=== PATIENT | female | born 1980 | race Hispanic/Latino ===

== ENCOUNTER 2018-07-09 20:12 | Emergency (ER) | payer OTHER ==
[~2018-07-09] VITALS: Ht 160 cm; Wt 104.3 kg
[2018-07-09] MEDS ORDERED: IBUPROFEN 600 MG TAB PO STA (20:35)
[2018-07-09] MEDS ORDERED: CYCLOBENZAPRINE HCL 10 MG TAB PO NR (20:45)
[2018-07-09] MEDS ORDERED: IBUPROFEN 600 MG TAB PO NR (21:00)
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
== END 2018-07-09 22:35 | disposition home or self-care (01) ==
LOC: ER 20:12
DX: M54.2 Cervicalgia (principal); M54.5 Low back pain; S16.1XXA Strain of muscle, fascia and tendon at neck level, initial encounter; V43.62XA Car passenger injured in collision with other type car in traffic accident, initial encounter; Y92.488 Other paved roadways as the place of occurrence of the external cause
CPT/HCPCS: 72050; 99283

== ENCOUNTER 2020-03-02 15:21 | Emergency (ER) | payer MEDICARE, OTHER ==
[~2020-03-02] VITALS: Ht 160 cm; Wt 113.4 kg
--- NOTE | 2020-03-02 16:25 | Emergency Department Note ---
History of Present Illnes History of Present Illness Chief Complaint: Eye, Ear, Nose, Throat, Dental History of Present Illness This is a 39 year old female Chief Complaint Comment Patient in from home with reports that she feels like something is stuck in her throat. Patient states that she was eating chicken on friday and she began to laugh and believes that she inhaled a bone and believes it is still stuck in her throat. Patient states that she tried to cough and even vomit but nothing was able to help. Patient describes a sharp pain in her throat and is still able to eat and drink but notices that when she swallows she feels like "something is moving in there". Historian: Patient Arrival Mode: Car Waitress Required: No Onset (how long ago): day(s) (3) Location: Throat Quality: Something stuck Radiation: Reports non-radiation Severity: mild Onset quality: sudden Duration (how long): day(s) (3) Timing of current episode: constant Progression: unchanged Chronicity: new Context: Denies recent illness, Denies recent surgery Relieving factors: none Exacerbating factors: none Associated symptoms: Reports denies other symptoms Treatments prior to arrival: none Past Medical/Family History Physician Review I have reviewed the patient's past medical and family history. Any updates have been documented here. Past Medical History Recent Fever: No Clinical Suspicion of Infectio: No New/Unexplained Change in Ment: No Past Medical History: None Other Surgery: Social History Smoking Cessation: Never Smoker Counseling Performed: No Alcohol Use: Occasional Any Illegal Drug Use: No Other Any Pre-Existing Lines (PICC,: No Review of Systems Review of Systems Constitutional: Reports no symptoms EENTM: Reports as per HPI Cardiovascular: Reports no symptoms Respiratory: Reports no symptoms Gastrointestinal: Reports no symptoms Genitourinary: Reports no symptoms Musculoskeletal: Reports no symptoms Integumentary: Reports no symptoms Neurological: Reports no symptoms Psychological: Reports no symptoms Endocrine: Reports no symptoms Hematological/Lymphatic: Reports no symptoms Physical Exam Related Data Allergies: Coded Allergies: No Known Allergies (Unverified , 03/05/13) Triage Vital Signs Vital Signs Date Time Temp Pulse Resp B/P (MAP) Pulse Ox O2 Delivery O2 Flow Rate FiO2 03/02/20 15:28 97.8 74 18 140/98 100 Room Air Vital signs reviewed: Yes Physical Exam CONSTITUTIONAL Constitutional: Present well-developed, Present well-nourished HENT HENT: Present normocephalic, Present atraumatic, Present oropharynx clear/moist, Present nose normal HENT L/R: Present left ext ear normal, Present right ext ear normal EYES Eyes: Reports PERRL, Reports conjunctivae normal NECK Neck: Present ROM normal PULMONARY Pulmonary: Present effort normal, Present breath sounds normal CARDIOVASCULAR Cardiovascular: Present regular rhythm, Present heart sounds normal, Present capillary refill normal, Present normal rate GASTROINTESTINAL Abdominal: Present soft, Present nontender, Present bowel sounds normal GENITOURINARY Genitourinary: Present exam deferred SKIN Skin: Present warm, Present dry MUSCULOSKELETAL Musculoskeletal: Present ROM normal NEUROLOGICAL Neurological: Present alert, Present oriented x 3, Present no gross motor or sensory deficits PSYCHOLOGICAL Psychological: Present mood/affect normal, Present judgement normal Assessment & Plan Medical Decision Making MDM 39 y.o F presents for foreign body sensation in throat x 2 days. She is able to swallow food and liquid. CT neck show sno retained foreign body. No difficulty handling secretions, no airway compromise. Gave return precautions and patient is appropriat for DC. Reassessment Reassessment time: 17:24 Reassessment Well appearing, NAD Assessment & Plan Final Impression: (1) Foreign body sensation in throat Depart Disposition: HOME, SELF-CARE Last Vital Signs Date Time Temp Pulse Resp B/P (MAP) Pulse Ox O2 Delivery O2 Flow Rate FiO2 03/02/20 15:28 97.8 74 18 140/98 100 Room Air Home Meds No Active Prescriptions or Reported Meds RYAN CAMEJO MD Mar 02, 2020 16:25
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
--- NOTE | 2020-03-02 17:09 | Diagnostic Imaging Report ---
History: Pain with swallowing Comparison studies: Plain films of the cervical spine on 07/09/2018 Technique: Axial images were obtained from the skull base to the thoracic inlet. Coronal and sagittal images reconstructed from the axial data. Dose modulation, iterative reconstruction, and/or weight based adjustment of the mA/kV was utilized to reduce the radiation dose to as low as reasonably achievable. Intravenous contrast: None Findings: Evaluation of the neck is limited due to the absence of intravenous contrast. In spite of this limitation, Airway: Patent. Soft tissues: No abnormalities. Lymph nodes: No radiographically significant adenopathy. Vessels: Cannot evaluate. Glands (thyroid, parotid and submandibular): Normal in size and symmetric. No masses. Orbits: No abnormalities. Paranasal sinuses: Nonobstructing retention cyst in the right maxillary sinus. Otherwise clear. Temporal bones: No abnormalities. Skull base and facial bones: Intact. Cervical spine: Slight reversal of the usual lordosis is centered at C6. Mildly degenerated disks at C5-6 and C6-7. IMPRESSION: 1. No soft tissue abnormalities. 2. Specifically, no hyperdense foreign bodies. Signed by: Dr. Montez Barrios M.D. on 03/02/2020 5:06 PM
== END 2020-03-02 17:28 | disposition home or self-care (01) ==
LOC: ER 15:40
DX: R09.89 Other specified symptoms and signs involving the circulatory and respiratory systems (principal)
CPT/HCPCS: 70490; 99283